=== PATIENT | female | born 1985 | race Caucasian/White ===

== ENCOUNTER 2017-12-17 14:13 | Emergency (ER) | payer SELFPAY ==
[2017-12-17 14:15] VITALS: BP 110/64; PULSE 80; RESP 16; TEMP 36.4; O2SAT 98; BMI 25.5
--- NOTE | 2017-12-17 14:57 | RAD_ITS ---
STUDY: X-RAY - LUMBAR SPINE REASON FOR EXAM: Female, 32 years old. Low back pain and right lower extremity pain. TECHNIQUE: 3 view(s) of the lumbar spine were obtained. COMPARISON: None FINDINGS: Normal lumbar lordosis. There is no substantial scoliosis. There is a normal alignment of the vertebrae. Normal vertebral bodies and endplates. Normal disc space heights. The soft tissue structures are unremarkable. RAD/Lumbar Spine 2 or 3 Views IMPRESSION: Normal x-ray examination of the lumbar spine. Electronically Signed: Jose Elias Ying MD at 15:20 EDT Tel [phone], Service support ,
[2017-12-17] MEDS: Ketorolac 30 MG/ML Syringe IM (15:07)
--- NOTE | 2017-12-17 15:37 | ED.DCSUM_ITS ---
- ER Visit Summary Date of Service: 12/17/17 Chief Complaint: Back pain and right leg pain History of Present Illness: The patient is a 32 F presenting for evaluation secondary to back and right leg pain. Patient reports that she had a normal uncomplicated vaginal delivery on 23 November. Over the course of the last 2 weeks the patient has had intermittent back pain right hip pain and right leg pain. Patient states that initially was coming and going, now it is continuous. It radiates down to her foot and toes and is associated with tingling of all 5 of her toes. She denies that there is any sort of weakness. There is pain with ambulation associated with it. She denies any bowel or bladder incontinence fevers night sweats. No history of IV drug abuse. She has tried Tylenol and ibuprofen without any relief, she did get a minimal amount of relief by a chiropractic adjustment. She has never had any prior similar symptoms in the past. Physical Examination: Vitals: Within normal limits General: Well-nourished well-developed no acute distress Head: Normocephalic atraumatic ENT: Moist mucous membranes Neck: Supple no JVD Cardiovascular: Heart regular rate and rhythm no murmurs Respiratory: Respirations nondistressed, lung sounds clear to auscultation bilaterally Abdominal: Soft, nontender, nondistended, normal bowel sounds, no evidence of abdominal masses or pulsatile mass Back: Normal to inspection, no midline tenderness to palpation, straight leg raise positive on the right, tenderness palpation paraspinally on the right Extremities: Nontender, nonedematous, 2+ radial and PT pulses bilaterally symmetric Skin: Normal color no rash Neuro: 5/5 strength hip flexion, knee flexion, knee extension, dorsiflexion, plantarflexion, EHL. Sensation intact over all dermatomes of the lower extremities bilaterally, 2+ patellar and Achilles reflexes bilaterally symmetric , negative clonus bilaterally, negative Babinski bilaterally Test Results: Lumbar x-ray found to be negative per radiology Emergency Department Course and Treatment: Patient presented for evaluation secondary to back pain. There is no red flag signs or symptoms with this, she has no abnormal neurologic findings and I believe that neuroimaging is necessary. Additionally the patient does not have a presentation that would seem consistent with vascular compromise or DVT. Radiographs of lumbar spine were obtained and were found to be negative. Patient was given Toradol repeat evaluation at 1530 showed the patient have symptomatic improvement. At this point patient will be discharged on a prednisone taper and instructions on stretching exercises. She will follow-up with primary care. Disposition: Discharge Impression: 1. Right-sided sciatica This note was generated with [employer] dictation software. It may contain incorrect words, spelling, and punctuation that were not noted in review of the chart prior to signing ED Disposition - Plan for ED Patient: Disposition: Home or Assisted Living Chief Complaint: Lower Extremity Injury Diagnosis: Sciatica Instructions: ED Sciatica Prescriptions: Prednisone 10 mg PO UD #33 tab Referrals: Giovanni Faith DO [Primary Care Provider] - 1 Week if not improving
== END 2017-12-17 15:55 | disposition home or self-care (01) ==
PROVIDERS: Emergency Provider Emergency Medicine; Family Provider Family Medicine; PCP Family Medicine
DX: M54.31 Sciatica, right side (principal)
CPT/HCPCS: 72100; 96372; 99282

== ENCOUNTER 2017-12-20 03:21 | Emergency (ER) | payer OTHER, SELFPAY ==
[2017-12-20 03:22] VITALS: BP 127/87; PULSE 69; RESP 18; TEMP 37.1; O2SAT 100; BMI 25.2
--- NOTE | 2017-12-20 05:29 | VDLE_ITS ---
Reason For Study: PAIN RIGHT GSV is normal. CFV is compressible, spontaneous, phasic, competent and demonstrates normal augmentation. FV is compressible, spontaneous, phasic, competent and demonstrates normal augmentation. POP V is compressible, spontaneous, phasic, competent and demonstrates normal augmentation. T/P Trunk is compressible. PTV is compressible. RT PerV is compressible. Procedure Exam performed portable in ED. A preliminary report was called and/or faxed to ED. Interpretation Summary Deep veins of the right lower extremity are patent and compressible segmentally. There is no evidence of right lower extremity deep vein thrombosis. Valvular competence appears intact within the proximal deep venous system on the right . The right greater saphenous vein appears patent and compressible segmentally. Ordering Physician: Mary Jane Strauss Referring Physician: ANGELO BOUDREAUX Performed By: Galilea Cisneros, DIVYA, RVT
[2017-12-20] MEDS: predniSONE 20 MG Tablet 40 MG PO (05:36)
[2017-12-20] MEDS: Ketorolac 30 MG/ML Syringe IM (05:36)
--- NOTE | 2017-12-20 06:13 | ED.DCSUM_ITS ---
- ER Visit Summary Date of Service: 12/20/17 Chief Complaint: Right hip and leg pain History of Present Illness: The patient is a 32 F who presents for 2 weeks of right hip and leg pain. Patient was seen for the same complaint several days ago. Patient is 2 weeks and since has been having pain in the right buttock and hip that radiates down the leg. Patient is complaining of associated numbness in her toes. She is having difficulty ambulating because of the pain. Patient is able to walk, but pain worsens and patient has to lay down. Pain is intermittent. She feels better if she lays on her stomach. She was prescribed prednisone at her prior visit and noted improvement after first dose, but stopped after 1 day because she felt her baby was getting fussy while breast-feeding. Patient took one 10mg prednisone last night. Patient has tried [id number] pain medications, massage, chiropractic manipulation, biofreeze without improvement. She states at times the pain will start in her calf and work its way up her leg. She denies any fever, abdominal pain, bowel or bladder incontinence or retention, or numbness in the groin. Physical Examination: Vital signs: afebrile, hemodynamically stable, no hypoxia on room air General: well nourished, well developed, laying prone in bed, in no distress but appears uncomfortable Skin: warm, dry, no rash, no pallor HEENT: normocephalic and atraumatic; PERRL, EOMI, moist mucous membranes Cardiovascular: regular rate and rhythm without murmurs, no peripheral edema, 2 + pulses all distal extremities Respiratory: No increased work of breathing, lungs are clear to auscultation bilaterally, no rales, rhonchi or wheezing Abdominal: Abdomen is soft, nontender with normoactive bowel sounds, no guarding or rebound, no masses MSK: Moves all extremities, no deformities, tenderness to palpation of the right calf without any palpable cords or noted swelling/asymmetry compared to the left. Normal strength in all lower extremity muscle groups and symmetric, sensation is symmetric and intact, patellar reflexes 2+ and symmetric, Achilles reflexes 2+ and symmetric Neuro: Awake and alert, oriented ?4. No facial droop, sensation and motor function intact and symmetric, normal gait for several steps observed Test Results: Duplex US showed no sign of DVT Emergency Department Course and Treatment: Patient presents for second evaluation of right lower back/buttock pain radiating into hip and down right leg. Patient has no red flag symptoms that warrant emergent MRI. Patient is having difficulty with meds due to , and we discussed the possibility of pump and dump or giving pre-pumped breast milk in a bottle while on meds for back pain. Patient stated this is what she wants to do. Because of the right calf pain and tenderness, US performed showing no DVT. Patient given IM toradol during workup. Patient restarted on prednisone in the ED and already has remainder of rx at home that she will resume. We discussed that back pain often has to resolve on its own over time and that there is no one medication that will make it go away. We discussed continuation of non- medical therapies and that patient needs to f/u with PCP if symptoms persist. Patient able to ambulate in the ED. DC home and will continue existing prednisone rx and OTC aleve. Treatment Plan: [] Disposition: [] Impression: right sciatica This note was generated with [employer] dictation software. It may contain incorrect words, spelling, and punctuation that were not noted in review of the chart prior to signing ED Disposition - Plan for ED Patient: Disposition: Home or Assisted Living Chief Complaint: Back Instructions: ED Sciatica Referrals: Giovanni Faith DO [Primary Care Provider] - As soon as possible Additional Instructions: Continue the prednisone as you were previously prescribed. You may use Aleve as needed for back pain. Do not breastfeed while on these medications. Back pain takes time to heal. Please follow-up with your doctor if you are not having improvements in 2 weeks. If at any point you develop inability to urinate or inability to control your bowels or bladder, high fever, severe abdominal pain, weakness in the legs, or any other concerns, return immediately to the emergency department for another evaluation.
--- NOTE | 2017-12-20 08:48 | ED.DEP ---
ED Disposition - Plan for ED Patient: Disposition: Home or Assisted Living Chief Complaint: Back Instructions: ED Sciatica Referrals: Giovanni Faith DO [Primary Care Provider] - As soon as possible Additional Instructions: Continue the prednisone as you were previously prescribed. You may use Aleve as needed for back pain. Do not breastfeed while on these medications. Back pain takes time to heal. Please follow-up with your doctor if you are not having improvements in 2 weeks. If at any point you develop inability to urinate or inability to control your bowels or bladder, high fever, severe abdominal pain, weakness in the legs, or any other concerns, return immediately to the emergency department for another evaluation.
[2017-12-20 09:01] VITALS: BP 107/67; PULSE 55; RESP 16; O2SAT 97
== END 2017-12-20 09:03 | disposition home or self-care (01) ==
PROVIDERS: Emergency Provider Emergency Medicine; Family Provider Family Medicine; PCP Family Medicine
DX: M54.41 Lumbago with sciatica, right side (principal); M79.604 Pain in right leg
CPT/HCPCS: 93971; 96372; 99284

== ENCOUNTER 2020-11-17 02:40 | Inpatient (IN) | payer SELFPAY, OTHER ==
[2020-11-17] VITALS (19 sets, daily range): BP systolic 115–141; BP diastolic 70–87; PULSE 82–97; RESP 16–18; TEMP 36–36.8; O2SAT 97–99; BMI 30.9
[2020-11-17] MEDS: Lactated Ringers 1,000 ML 50 ML IV (03:04)
[2020-11-17 03:29] LABS: Bacteria 0 SEEN /hpf (None Seen); Mucous, Urine 0 SEEN /hpf (<or=2+); White Blood Cells 0 SEEN /hpf (0-5)
[2020-11-17 03:38] LABS: Absolute Lymphocyte Count 1.76 X10^3/uL (0.83-4.51); Absolute Neutrophil Count 4.6 X10^3/uL (2.0-7.7); Basophil# 0.03 X10^3/uL; Basophil% 0.4 % (0-1); Eosinophil# 0.07 X10^3/uL; Hematocrit 37.4 % (37-47); Hemoglobin 11.9 g/dL (12.0-15.0); Lymphocyte # 1.76 X10^3/ul (0.83-4.51); Lymphocyte % 25.1 % (19-41); Mean Corp Hgb Conc 31.8 g/dL (32-36); Mean Corpuscular Hgb 25.5 pg (27.0-32.0); Mean Corpuscular Volume 80.3 fL (81-99); Mean Platelet Vol. 10.9 fl (6.2-12.0); Monocyte# 0.58 X10^3/uL; Monocyte% 8.3 % (0-10); NRBC Flagged by Analyzer 0 % (0-5); Neutrophil # 4.56 X10^3/uL (2.7-7.7); Neutrophil % 64.9 % (47-70); Platelet Count 225 K/mm3 (150-450); RBC Distribution Width CV 15.1 % (11.6-14.6); RBC Distribution Width SD 43.7 fl (35.1-43.9); Red Blood Count 4.66 M/mm3 (4.2-5.4)
[2020-11-17 03:38] LABS: Color, Urine Yellow (Yellow); Glucose, Dipstick Normal (Normal); Ketone-Dipstick Negative (Negative); Leukocyte Esterase-Dipstick Negative /ul (Negative); Nitrite-Dipstick Negative (Negative); Occult Blood-Urine 50 /ul (Negative); Protein-Dipstick Negative (Negative); Specific Gravity, Urine 1.005 (1.002-1.030); Urine Bilirubin Dipstick Negative (Negative); Urine Clarity Clear (Clear); Urine Urobilinogen Normal (Normal); Urine pH 6.5 (5.0 - 8.0)
[2020-11-17 03:44] LABS: Red Blood Cells-Urine 0-5 SEEN /hpf (0-5); Squamous Epithelial Cells - UA 0-5 SEEN /hpf (5-10)
[2020-11-17 03:52] LABS: ALB/GLOB Ratio 0.7 RATIO (0.9-2.4); AST(SGOT) 18 U/L (15-37); Alanine Aminotransfer ALT/SGPT 23 U/L (13-56); Albumin, Serum 2.8 g/dL (3.2-5.0); Alkaline Phosphatase 140 U/L (45-117); Anion Gap 9 (5-15); BUN 4 mg/dL (7-18); BUN/Creat Ratio 5.8 RATIO (10-20); Calcium,Total 8.5 mg/dL (8.5-10.1); Chloride 107 mmol/L (98-107); Creatinine, Serum 0.69 mg/dL (0.55-1.02); EST Glomerular Filtration Rate 102 mL/min (>60); Est Glom Filt Rate - Afr Amer 123 mL/min (>60); Estimated Creatinine Clearance 98.27 ml/min; Globulin 4.1 g/dL (2.2-4.2); Glucose 84 mg/dL (74-106); Potassium 3.6 mmol/L (3.5-5.1); Protein, Total 6.9 g/dL (6.4-8.2); Sodium Level 139 mmol/L (136-145)
[2020-11-17 04:01] LABS: Bedside Glucose 88 mg/dL (70-110)
--- NOTE | 2020-11-17 04:18 | HP.PCM.OB_ITS ---
HPI - General General Date of Admission: 11/17/20 HPI Narrative KENNETH BISWAS, is a 35 F who presents at 41 weeks. . 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 SROM at 0300 on 11/16/20 and ROM for 24 hrs and no onset of labor, tachycardia and brought to labor and delivery for care. history positive for PROM, AMA, grand multiparous, limited PN care, no anatomy ultrasound or labs completed. Denies any significant PN history. 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 Maternal Data Information Final AMOR: 11/10/20 Final AMOR Source: LMP Gestational age: 41 weeks PFSH Allergy/AdvReac Type Severity Reaction Status Date / Time No Known Allergies Allergy Verified 11/17/20 04:18 Social History Smoking Status: Never smoker History Elective abortions Hx Para 6 Spontaneous abortions Hx # Term Pregnancies Ectopic pregnancies Hx # Pregnancies Multiple births # of living children NST FHR Rate Baby A Baseline: 145 Variability:: Minimal Accelerations:: 15 x 15 Decelerations:: None FHR Category:: Category II Uterine Activity:: Irregular ROS Constitutional Constitutional: Reports systems reviewed and no addt'l complaints, except as documented; Denies headache(s) Eyes Eyes: Denies acute decrease in peripheral vision, blurry vision or change in vision ENT HEENT: Reports systems reviewed and no addt'l complaints, except as documented Cardiovascular Cardiovascular: Denies chest pain or dizziness Respiratory/Chest Respiratory/Chest: Denies cough, dyspnea, dyspnea on exertion, shortness of breath at rest or shortness of breath with exertion Gastrointestinal Gastrointestinal: Denies abdominal pain, diarrhea, nausea or vomiting Genitourinary Genitourinary: Denies abdominal discomfort or movement Musculoskeletal Musculoskeletal: Denies limited range of motion Integumentary Integumentary: Reports systems reviewed and no addt'l complaints, except as documented Neurologic Neurologic: Reports systems reviewed and no addt'l complaints, except as doc umented Psychiatric Psychiatric: Reports systems reviewed and no addt'l complaints, except as documented Endocrine Endocrinology: Reports systems reviewed and no addt'l complaints, except as documented Hematologic/Lymphatic Hematologic/Lymphatic: Reports systems reviewed and no addt'l complaints, except as documented Allergic/Immunologic Allergic/Immunologic: Reports systems reviewed and no addt'l complaints, except as documented Vital Signs Vital Signs Vital Signs: 11/17/20 02:08 11/17/20 03:52 11/17/20 03:53 Temperature 97.9 F 96.8 F L Pulse Rate 85 85 Blood Pressure 121/78 H 130/84 H BP Systolic 121 130 BP Diastolic 78 84 Weight Weight: 169 lb Body Mass Index (BMI) 30.9 Physical Exam Narrative Limited bedside US confirms cephalic presentation. Const alert and oriented x3 General Appearance: cooperative Orientation / Consciousness: awake, oriented to person, oriented to place and oriented to time Exam Limitations: no limitations HEENT normocephalic Head and Scalp: normal to inspection, normocephalic and atraumatic Face and Sinus: normal facial exam Eyes General Eye: normal appearance of both eyes Neck full ROM Chest Chest: symmetrical chest wall rise Resp normal respiratory effort and normal air movement Auscultation: clear to auscultation bilaterally Cardio regular rate, regular rhythm, S1 normal heart sound, S2 normal heart sound, no murmurs, no rub, no gallops and no clicks GI normal to inspection, nondistended, normoactive bowel sounds and non-tender appearance of the vagina normal Bladder / Kidney Exam: no CVA tenderness Manual OB Exam: presentation cephalic, dilated 4, effaced 60 and station - 2 Amniotic Fluid: clear amniotic fluid Back/Spine normal ROM Extremity normal to inspection and full ROM Skin no rashes or lesions noted Neuro oriented x3, CN's II-XII intact bilaterally and moves all extremities Sensorium / Orientation: awake, alert and oriented to person Motor Exam: clonus absent Deep Tendon Reflexes: Rt Patellar (L4): 2+ and Lt Patellar (L4): 2+ Labs Labs Labs: Blood Type Pending Antibody Screen Pending Hct 37.4 % (37-47) Hgb 11.9 g/dL (12.0-15.0) L Syphilis Total Ab Pending Rubella IgG Antibody Pending Hep Bs Antigen Pending HIV 1&2 Antibody Pending C.trachomatis DNA (PCR) Pending Group B Strep DNA Pending No PN labs completed Assessment & Plan (1) Advanced maternal age (AMA) in : (2) Limited care: (3) Grand multipara: (4) PROM (premature rupture of membranes): PLAN: 1) Admit to labor and delivery 2) IV, routine labs, and PN labs 3) Rapid GBS, no history of GBS per patient 4) COVID screening 5) Continuos EFM 6) Will start pitocin if no cervical change in 2 hr 7) Confirmed cephalic presentation by limited PN US 8) to assume care of patient due to limited PN care and no anatomic evaluation during . Notified of patient status.
[2020-11-17] MEDS: Oxytocin 30 units/NS 500 ml 30 UNITS/500 ML IV.SOLN IV (04:53)
[2020-11-17 05:17] LABS: HIV - WCH Non-Reactive (Nonreactive); Hepatitis B Surface Antigen Non-Reactive (Nonreactive); Hepatitis C Antibody Non-Reactive (Nonreactive)
[2020-11-17 05:30] LABS: Chlamydia Trachomatis by PCR Negative (Negative); Group B Strep DNA By PCR Negative (Negative); Internal Control PASS; Neisserai gonorrhoeae by PCR Negative (Negative); Probe Check PASS; Sample Adequacy Control PASS; Specimen Processing Control PASS
[2020-11-17] MEDS: Oxytocin 30 units/NS 500 ml 30 UNITS/500 ML IV.SOLN 334 UNITS IV (08:00)
--- NOTE | 2020-11-17 08:16 | EX.PCM.OBRPT ---
Assessment & Plan (1) Vaginal delivery: (2) First degree perineal laceration: Maternal Data Information Final AMOR: 11/10/20 Final AMOR Source: LMP Gestational age: 41 weeks Vaginal Delivery Maternal Presentation Maternal Presentation: PPROM, pitocin augmentation Operative Information Date of Procedure: 11/17/20 Pre-Operative Diagnosis: PPROM Post-Operative Diagnosis: Surgery / Procedure Performed: Spontaneous Vaginal Delivery Type of Anesthesia: None Estimated Blood Loss: 150 ml Time of Delivery: 07:56 Findings Description of Procedure: Progressed to complete with urge to push, unmedicated. of viable female over first degree perineal laceration. APGARS 9,9. Infant head delivered with CAN x2, loose, delivered through, body forthcoming. Infant placed on maternal abdomen, mouth and nares suctioned for secretions. Pitocin started for active 3rd stage management. Placenta delivered with maternal effort, intact, 3 vessel cord. Perineum inspected and revealed first degree perineal laceration, reapproximated with 3.0 vicryl rapide figure 8 stitch, consented to no lidocaine for repair, tolerated well. Fundus firm, EBL 150ml. Vaginal sweep completed, sponge and instrument count correct and completed by me. Mom and baby stable, planning to breastfeed, family bonding well. present at hospital for delivery due to transfer of care with limited PN care and no US. Presentation: Vertex and FUENTES Time of Membrane Rupture: 11/16/20 at 0300 Amniotic Fluid Description: Clear and - (terminal meconium) Placental Delivery Description: Spontaneous Placenta Disposition: [facility] Cord Vessel Description: 3 Vessels Cord Entanglement: Around neck x 2, loose Nuchal Cord Compression: Without compression Infant A Gender: Female (1 minute): 9 (5 minute): 9 Delayed Cord Clamping: Yes Post Vaginal Delivery Medications Given After Delivery: IV Pitocin Episiotomy Description: None Laceration: 1st degree Complication Complications: None
[2020-11-17 09:53] LABS: Rubella IgG Reactive (Nonreactive); Syphilis Antibodies Non-reactive
[2020-11-17] MEDS: 0.9% Saline Lock 10 ML Syringe IV (10:40)
--- NOTE | 2020-11-17 11:07 | NURSING ---
Did not measure urine. Up to bathroom for qs void and pericare. Gait steady. Up and around room.
--- NOTE | 2020-11-17 11:10 | NURSING ---
Discussion at delivery with Jasiel HERNANDEZM about pt and desire for discharge later today. Jasiel gave pt and information about stay and advised pt to stay at minimum 24 hours. Pt and verbalized that they understand the recommendation but that they prefer discharge with Halina, process worker, following up with pt and . Pt. states she has in-home help for after discharge.
--- NOTE | 2020-11-17 17:54 | PCM.DC ---
Discharge Instructions Diet Discharge Diet: No restrictions Activity May resume sexual activity in: 6-8 weeks Weight Bearing Status: Weight bearing as tolerated Dressing / Incision Call your doctor if you observe: Fever of 101 or Higher, Inability to urinate, Using more than one pad per hour, Shortness of breath, Chest pain, Calf discomfort and Uncontrolled pain Follow Up Care Please Follow Up With: Kimberly Hardy CNM When: 2 weeks virtual visit/ 6 weeks in office Test Results: Test results from this visit will be discussed in further detail at your follow-up appointment, if applicable. Discharge Plan Admission Admit Date/Time: 11/17/20 02:40 Primary Reason for Your Visit: labor and delivery Attending Provider: Radha Nichols Primary Care Provider: Giovanni Faith Instructions Patient Instructions: After a Vaginal Discharge Orders/Prescriptions Referrals / Follow Up: Giovanni Faith DO [Primary Care Provider] - Disposition Disposition (needs filled in before D/C Order can be placed): Home, self care
--- NOTE | 2020-11-17 17:56 | PN_ITS ---
Progress Note Patient desiring discharge home at this time. S/P vaginal delivery this morning. Patient has been ambulating and voiding without difficulty. without support. Denies any pain. Patient will follow up with manager of case management and family physician. Physical Exam Const alert and oriented x3 General Appearance: cooperative and comfortable Orientation / Consciousness: awake Exam Limitations: no limitations HEENT normocephalic Head and Scalp: normal to inspection Eyes General Eye: normal appearance of both eyes Neck full ROM and no lymphadenopathy Lymph Lymphatic: no lymphadenopathy noted Chest inspection of chest normal Resp normal respiratory effort, normal air movement and clear to auscultation bilaterally Effort and Inspection: able to speak in complete sentences and symmetric chest movement Cardio regular rate and regular rhythm GI normal to inspection, nondistended, normoactive bowel sounds Back/Spine normal ROM Extremity full ROM and no calf tenderness Skin no rashes or lesions noted General Skin Exam: no breakdown Neuro oriented x3, CN's II-XII intact bilaterally and moves all extremities Psych mental status grossly normal and thought process normal Assessment & Plan Assessment/Plan (1) First degree perineal laceration: (2) Vaginal delivery: PLAN: PPD Denies pain Routine care Discharge home with follow up with manager of case management and family physician
== END 2020-11-17 18:14 | disposition home or self-care (01) | DRG 807 ==
LOC: WPOUT 02:42 → WP 02:42
PROVIDERS: Obstetrics & Gynecology; Admitting Provider Advanced Practice Midwife; PCP Family Medicine; Visit Provider Advanced Practice Midwife
DX: O42.913 Preterm premature rupture of membranes, unspecified as to length of time between rupture and onset of labor, third trimester (principal); Z37.0 Single live birth; Z3A.41 41 weeks gestation of pregnancy; O70.0 First degree perineal laceration during delivery; O69.82X0 Labor and delivery complicated by other cord entanglement, without compression, not applicable or unspecified; O77.0 Labor and delivery complicated by meconium in amniotic fluid
CPT/HCPCS: 59025; 59050; 76815; 80053; 81001; 82962; 85025; 86703; 86762; 86780; 86803; 86850; 86900; 86901; 87081; 87340; 87426; 87491; 87591; 87653; 99218; J7120; A4216; G0378